=== PATIENT | male | born 1970 | race African-American/Black ===

== ENCOUNTER 2016-12-16 19:59 | Emergency (ER) | payer SELFPAY ==
--- NOTE | 2016-12-16 20:13 | ER Document Report ---
ED Medical Screen (RME) - General Stated Complaint: POSSIBLE ABSCESS ON FINGER Mode of Arrival: Ambulatory Information source: Patient Notes: Pt reports abscess to right middle finger that started 2 weeks ago, placed on antibx. Still swelling with erythema. I have greeted and performed a rapid initial assessment of this patient. A comprehensive ED assessment and evaluation of the patient, analysis of test results and completion of the medical decision making process will be conducted by additional ED providers. - Related Data Allergies/Adverse Reactions: prochlorperazine [From Compazine] Adverse Reaction (Verified 12/16/16 20:12)
[2016-12-16] MEDS ORDERED: LIDOCAINE 1% INJ-PF (10 MG/ML) 30 ML SDV INJ ONE (22:03)
[2016-12-16] MEDS ORDERED: BUPIVACAINE HCL 0.5 % INJ/PF 30 ML SDV INJ ONE (22:04)
--- NOTE | 2016-12-16 22:06 | ER Document Report ---
ED Skin Rash/Insect Bite/Abscs - General Chief Complaint: Abscess Stated Complaint: POSSIBLE ABSCESS ON FINGER Time seen by provider: 22:05 Mode of Arrival: Ambulatory Notes: Patient is a 46-year-old male that comes emergency department with chief complaint of a tender swollen area beside the nail of his right middle finger, patient states he was treated for this with dicloxacillin 2 weeks ago by primary care, he states that he actually personally drained this once but it has returned. Initial injury was at work when he actually cut himself with a knife he was using for food preparation. Patient denies diabetes, denies any daily medications. TRAVEL OUTSIDE OF THE [place] IN LAST 30 DAYS: No - Related Data Allergies/Adverse Reactions: prochlorperazine [From Compazine] Adverse Reaction (Verified 12/16/16 20:12) Past Medical History - General Information source: Patient - Social History Smoking Status: Never Smoker Chew tobacco use (# tins/day): No Frequency of alcohol use: Occasional Drug Abuse: None Lives with: Family Family History: Reviewed & Not Pertinent Patient has suicidal ideation: No Patient has homicidal ideation: No - Medical History Medical History: Negative Renal/ Medical History: Denies: Hx Peritoneal Dialysis Surgical Hx: Negative - Immunizations Immunizations up to date: Yes Hx Diphtheria, Pertussis, Tetanus Vaccination: Yes Review of Systems - Review of Systems Constitutional: No symptoms reported EENT: No symptoms reported Cardiovascular: No symptoms reported Respiratory: No symptoms reported Gastrointestinal: No symptoms reported Genitourinary: No symptoms reported Male Genitourinary: No symptoms reported Musculoskeletal: See HPI Skin: See HPI Hematologic/Lymphatic: No symptoms reported Neurological/Psychological: No symptoms reported Physical Exam - Vital signs Vitals: Temp Pulse Resp BP Pulse Ox 97.8 F 79 18 126/78 H 96 12/16/16 20:10 12/16/16 20:10 12/16/16 20:10 12/16/16 20:10 12/16/16 20:10 Interpretation: Normal - General General appearance: Appears well, Alert In distress: None - HEENT Head: Normocephalic, Atraumatic Eyes: Normal Conjunctiva: Normal Extraocular movements intact: Yes Eyelashes: Normal Pupils: PERRL Mouth/Lips: Normal Mucous membranes: Normal Pharynx: Normal Neck: Normal - Respiratory Respiratory status: No respiratory distress Chest status: Nontender Breath sounds: Normal. No: Decreased air movement, Wheezing Chest palpation: Normal - Cardiovascular Rhythm: Regular. No: Tachycardia Heart sounds: Normal auscultation, S1 appreciated, S2 appreciated Murmur: No - Abdominal Inspection: Normal Distension: No distension Bowel sounds: Normal Tenderness: Nontender. No: Tender, Guarding Organomegaly: No organomegaly - Back Back: Normal, Nontender - Extremities General upper extremity: Other - Right middle finger nail with paronychia extending around one side with inflammation and redness of the area, no abnormality of the finger pad, no swelling of the finger otherwise, normal range of motion the finger, normal capillary refill and sensation General lower extremity: Normal inspection, Nontender, Normal color, Normal ROM , Normal temperature, Normal weight bearing. No: Rachel's sign - Neurological Neuro grossly intact: Yes Cognition: Normal Orientation: AAOx4 Nhan Coma Scale Eye Opening: Spontaneous Nhan Coma Scale Verbal: Oriented [place] Coma Scale Motor: Obeys Commands Nhan Coma Scale Total: 15 Speech: Normal Motor strength normal: LUE, RUE, LLE, RLE Sensory: Normal - Psychological Associated symptoms: Normal affect, Normal mood - Skin Skin Temperature: Warm Skin Moisture: Dry Skin Color: Normal Course - Re-evaluation Re-evalutation: Paronychia drained, patient will be given Bactrim coverage in addition to his dicloxacillin, discussed treatment, follow-up, return precautions, patient states understanding and agreement. - Vital Signs Vital signs: Temp Pulse Resp BP Pulse Ox 97 F L 76 20 120/72 100 12/16/16 23:28 12/16/16 23:28 12/16/16 23:28 12/16/16 23:28 12/16/16 23:28 Procedures - Incision and Drainage right middle finger paronychia Type: Single Anesthetic type: 1% Lidocaine, 0.5% Bupivacaine mL's of anesthetic: 6 - metacarpal block I&D procedure: Sterile dressing applied, Other - Surgical cleanser Incision Method: Incision made by scalpel Amount/type of drainage: moderate, mucopurulent, small amount of blood Discharge - Discharge Clinical Impression: Paronychia Qualifiers: Laterality: right Qualified Code(s): L03.011 - Cellulitis of right finger Condition: Stable Disposition: HOME, SELF-CARE Additional Instructions: Ty has been drained, keep clean, clean gently with soap and water, keep bulky dressing and bacitracin or Neosporin dressing over the area. Take antibiotics as prescribed, monitor the area and return immediately if she develops swelling of the finger, swelling of the pad of the finger, fever, or any other concerning or worsening symptoms. Prescriptions: Sulfamethoxazole/Trimethoprim [Bactrim Ds Tablet] 1 each PO BID #10 tablet
[2016-12-16] MEDS ORDERED: SULFAMETHOXAZOLE/TRIMETHOPRIM 800-160 MG TABLET PO ONE (23:09)
[2016-12-16 23:29] VITALS: BP 120/72
== END 2016-12-16 23:28 | disposition home or self-care (01) ==
LOC: ER 19:59
PROC: 0H9FXZZ Drainage of Right Hand Skin, External Approach (ICD-10-PCS; principal; 2016-12-16)
DX: L03.011 Cellulitis of right finger (principal)
CPT/HCPCS: 99283; 10060; J3490